=== PATIENT | female | born 1955 | race Caucasian/White ===

== ENCOUNTER → 2016-08-24 | Outpatient (CLI) | payer OTHER | LOC: FIMAGING 09:45 | DX: Z12.31 Encounter for screening mammogram for malignant neoplasm of breast (principal); Z80.3 Family history of malignant neoplasm of breast | CPT/HCPCS: G0202 ==

== ENCOUNTER 2017-05-09 09:00 | Day surgery (SDC) | payer OTHER ==
--- NOTE | 2017-05-08 16:31 | GHP ---
[f rep st] PREOP HISTORY AND PHYSICAL DATE OF ADMISSION: 05/09/2017 HISTORY: Regina is a 61-year-old female, who injured her left shoulder about 3 months ago when she was mowing and she ran into a sawed-off tree limb. This directly struck her shoulder, it was very painf ul, since that time, she has developed significant shoulder problems. She has pain with overhead mot ion, night pain, difficulty sleeping on her side. She has tried anti-inflammatory medications. Abdu ction as well as forward flexion generates most of her discomfort. This prompted an MRI, the MRI allison ws a superior labral tear. This does not appear to involve the biceps anchor. The biceps tendon its elf looks to be in reasonable shape. There is some rotator cuff tendinosis. No significant tear. G lenohumeral articular cartilage looks intact. There is subacromial bursitis. I tried a subacromial injection and this was minimally helpful, her pain and stiffness persists. The surgical plan with th e left shoulder is a gentle manipulation under anesthesia, arthroscopy debridement including the supe rior labrum is needed, possibly a biceps tenodesis, and arthroscopic decompression. PAST MEDICAL HISTORY: Remarkable for cholesterol elevation and hypothyroid. MEDICATIONS: Include simvastatin 20 mg p.o. daily, levothyroxine 50 mcg p.o. daily, hydrochlorothiaz preeti 12.5 mg daily for edema. ALLERGIES: No known drug allergies. SOCIAL HISTORY: She has never been a smoker. She is a registered nurse. Employed at [employer]. REVIEW OF SYSTEMS: Positive for hypothyroid. PHYSICAL EXAM: GENERAL: The patient is a well-developed, well-nourished female in no apparent distr ess. HEAD AND NECK: Normocephalic, atraumatic. CHEST: Clear. CARDIOVASCULAR: Regular rate and r hythm. ABDOMEN: Soft. NEUROLOGIC: She is alert and oriented x3. EXTREMITIES: Examination of the left shoulder shows that she has pain beyond 70 degrees of forward flexion. She has marked impingem ent findings with straight abduction. She has pain with circumduction. She has reasonable strength on initiation of adduction as well as external rotation. The position for supraspinatus testing is u ncomfortable with some weakness, nontender at the AC joint. Her tenderness really focuses in the sub deltoid bursa and deeper in the joint. IMPRESSION: Persistent left shoulder pain with limited motion, superior labral tear, impingement bur sitis and rotator cuff tendinosis. PLAN: Left shoulder manipulation, arthroscopy, labral biceps rotator cuff work as needed, as well as a decompression. Benefits and risks of surgery have been reviewed. She has signed a consent form a nd wishes to proceed. /[id number]/MODL
[2017-05-09] MEDS ORDERED: ceFAZolin 2 GM/SWFI 2 GM/20 ML SYR IVP ONE (09:23)
[2017-05-09] MEDS ORDERED: LR 1,000 ML IV SCH (09:23)
[2017-05-09 09:35] VITALS: PULSE 64
[2017-05-09] MEDS ORDERED: BUPIVACAINE 0.25% 30 ML SDV ONE (09:35)
[2017-05-09] MEDS ORDERED: MIDAZOLAM 2 MG/2 ML VIAL IVP ONE (09:59)
--- NOTE | 2017-05-09 10:02 | PDANEPAE ---
ANE Past Medical History - Cardiovascular History Hx Hypertension: No Hx Arrhythmias: No Hx Chest Pain: No Hx Coronary Artery / Peripheral Vascular Disease: No Hx CHF / Valvular Disease: No Hx Palpitations: No Cardiovascular History Comment: occas pvc"s - Pulmonary History Hx COPD: No Hx Asthma/Reactive Airway Disease: No Hx Recent Upper Respiratory Infection: No Hx Oxygen in Use at Home: No Hx Sleep Apnea: No Sleep Apnea Screening Result - Last Documented: Negative - Neurologic History Hx Cerebrovascular Accident: No Hx Seizures: No Hx Dementia: No - Endocrine History Hx Diabetes: Yes Endocrine History Comment: hypothyroid - Renal History Hx Renal Disorders: No - Liver History Hx Hepatic Disorders: No - Neurological & Psychiatric Hx Hx Neurological and Psychiatric Disorders: No - Cancer History Hx Cancer: No - Congenital Disorder History Hx Congenital Disorders: No - GI History Hx Gastrointestinal Disorders: No - Other Health History Other Health History: neg - Chronic Pain History Chronic Pain: Yes (l shoulder) - Surgical History Prior Surgeries: hysterectomy. mastoplexy ANE Review of Systems Review of Systems: - Exercise capacity METS (RN): 5 METS ANE Patient History - Allergies Allergies/Adverse Reactions: No Known Allergies Allergy (Unverified 04/18/17 15:21) - Home Medications Home Medications: Advil 04/18/17 [Last Taken 05/04/17] Estradiol 04/18/17 [Last Taken Unknown] HCTZ (*) 04/18/17 [Last Taken 05/08/17] Herbals/Supplements -Info Only 04/18/17 [Last Taken 05/04/17] Simvastatin 04/18/17 [Last Taken 05/08/17] Synthroid 04/18/17 [Last Taken 05/08/17] - NPO status NPO Since - Liquids (Date): 05/08/17 NPO Since - Liquids (Time): 22:00 NPO Since - Solids (Date): 05/08/17 NPO Since - Solids (Time): 19:00 - Anes Hx Anes Hx: no prior problems - Smoking Hx Smoking Status: Never smoked - Family Anes Hx Family Hx Anesthesia Complications: neg ANE Labs/Vital Signs - Vital Signs Blood Pressure: 125/69 Heart Rate: 64 Respiratory Rate: 14 O2 Sat (%): 96 Height: 172.72 cm Weight: 70.307 kg ANE Physical Exam - Airway Neck exam: FROM Mallampati Score: Class 2 Mouth exam: normal dental/mouth exam - Pulmonary Pulmonary: no respiratory distress, no rales or rhonchi, clear to auscultation - Cardiovascular Cardiovascular: regular rate and rhythym, no murmur, rub, or gallop - ASA Status ASA Status: II ANE Anesthesia Plan Anesthesia Plan: GA w LMA Regional Anesthesia: single shot NB, interscalene BP NB (Will evaluate pain in PACU since extent of surgery is unknown now. Informed consent obtained.)
[2017-05-09] MEDS ORDERED: DEXMEDETOMIDINE HCL 200 MCG/2 ML VIAL IV ONE (10:09)
[2017-05-09] MEDS ORDERED: DEPO METHYLPREDNISOLONE 40 MG/ML SDV ONE (10:12)
[2017-05-09] MEDS ORDERED: LIDOCAINE 1% 300 MG/30 ML SDV ONE (10:12)
[2017-05-09] MEDS ORDERED: fentaNYL 100 MCG/2 ML INJ ONE ×2 (10:13→12:16)
[2017-05-09] MEDS ORDERED: PROPOFOL 200 MG/20 ML VIAL ONE (10:14)
[2017-05-09] MEDS ORDERED: KETAMINE 100 MG/10 ML SYR ONE (10:14)
[2017-05-09] MEDS ORDERED: ONDANSETRON 4 MG/2 ML VIAL ONE (10:14)
[2017-05-09] MEDS ORDERED: LIDOCAINE 2% 5 ML SDV ONE (10:14)
[2017-05-09] MEDS ORDERED: DEXAMETHASONE 4 MG/ML VIAL ONE ×2 (10:15)
[2017-05-09] MEDS ORDERED: LIDOCAINE 2% JELLY 5 ML TUBE ONE (10:15)
[2017-05-09] MEDS ORDERED: GLYCOPYRROLATE 0.2 MG/1 ML VIAL ONE (10:16)
[2017-05-09] MEDS ORDERED: KETOROLAC 30 MG/1 ML SDV ONE (11:23)
[2017-05-09] MEDS ORDERED: PROMETHAZINE HCL 25 MG/ML INJ IVP PRN (11:30)
[2017-05-09] MEDS ORDERED: MEPERIDINE 25 MG/ML SYR IVP PRN (11:30)
[2017-05-09] MEDS ORDERED: fentaNYL 100 MCG/2 ML INJ IVP PRN (11:30)
[2017-05-09] MEDS ORDERED: LR 500 ML IV PRN (11:30)
[2017-05-09] MEDS ORDERED: OXYCODONE/APAP 5/325 TAB PO PRN (11:30)
[2017-05-09] MEDS ORDERED: ONDANSETRON 4 MG/2 ML VIAL IVP PRN (11:30)
[2017-05-09] MEDS ORDERED: NALOXONE HCL 0.4 MG/ML INJ IVP PRN (11:30)
[2017-05-09] MEDS ORDERED: ACETAMINOPHEN 500 MG TAB PO PRN (11:30)
--- NOTE | 2017-05-09 12:06 | POSTANESTH ---
Post Anesthetic Evaluation Cardiovascular Status: Normal, Stable Respiratory Status: Normal, Stable, Similar to Pre-op Cond. Level of Consciousness/Mental Status: Can Participate in Eval, Moderately Sleepy Pain Control: Adequate, Prn Tx Ordered Nausea/Vomiting Control: Adequate, Prn Tx Ordered Complications Possibly Related to Anesthesia: None Noted
[2017-05-09] MEDS ORDERED: OXYCODONE/APAP 5/325 TAB ONE (12:17)
--- NOTE | 2017-05-09 12:30 | GOP ---
[f rep st] OPERATIVE REPORT DATE OF OPERATION: SURGEON: Alexis Arora MD LOAN BROKER: Pradeep Wilson, CSFA, LSA. ANESTHESIA: Alexis Couch MD. PREOPERATIVE DIAGNOSIS: Left shoulder impingement, subacromial bursitis, rotator cuff tendinosis, chaidez perior labral tear. POSTOPERATIVE DIAGNOSIS: Left shoulder impingement, subacromial bursitis, rotator cuff tendinosis, s uperior labral tear. PROCEDURE PERFORMED: Left shoulder gentle manipulation, left shoulder arthroscopy, labral debridemen t, subacromial bursectomy, and arthroscopic subacromial decompression. FINDINGS: On gentle manipulation, there is minimal stiffness of the shoulder. There is a little sof t tissue release in the last 5 degrees of full forward flexion. She is fine with internal and wireless telegrapher al rotation, abduction and external rotation. The capsule is overall flexible. On arthroscopy, the articular surface of the humerus and the glenoid intact. The superior labrum has a tear. It emerges from the undersurface of the labrum and generates a frayed tear that drapes into the joint. The constantine g head biceps tendon is intact. It is round, smooth, and a good quality tendon, and its attachment a t the superior labrum appears intact. The undersurface of the cuff shows no tears. The superior jeannie face of the cuff shows a lot of granulation-like inflammation on its surface, and there is a lot of b ursal inflammation. There is bony impingement anatomy and thick inflamed bursa. SPECIMENS: None. ESTIMATED BLOOD LOSS: Minimal. INDICATIONS: The patient is a 61-year-old female who injured her left shoulder about 3 months ago. She has pain with overhead motion, by exam impingement. An MRI shows a superior labral tear that silveira s not appear to detach the biceps. Biceps tendon is in good shape. There is cuff tendinosis, bursit is, and bony impingement anatomy. Articular surfaces appear intact. The AC joint has some inflammat ion but nontender there by exam. DESCRIPTION OF PROCEDURE: The patient was taken to the operating room, placed supine on the operatin g table, placed under general anesthetic with laryngeal mask ventilation. I gently manipulated the s houlder with minimal stiffness noted as described in the findings. She was then rolled right side do wn on a padded mazariegos bag with an axillary roll. All bony prominences were well padded, and the left u pper extremity was placed in 10 pounds of longitudinal traction, 45 degrees of abduction, 20 degrees of forward flexion. We used a thorough standard chlorhexidine prep. Arthroscopy drapes were applied . I used a standard anterior and posterior portal with the above-noted findings. I reached through the anterior portal and I debrided the superior labrum back to a stable base. This did leave a littl e recess under the superior labrum, but the biceps anchor appeared sound. I placed 5 cc of lidocaine plain in the joint with 1 cc of Depo-Medrol 40 mg/cc. I then placed the scope in the subacromial sp zainab, established a lateral portal. I used a shaver and a tissue ablator to define the undersurface o f the acromion and I used acromionizer bur to flatten the undersurface of the acromion as well as the distal clavicle. The bone resection released the coracoacromial ligament, and I did a bursectomy. This included debridement of the superior surface of the cuff that had a lot of inflamed tissue on it s surface. I placed 10 cc of 0.5% plain Marcaine with 1 cc of Depo-Medrol 40 mg/cc in the subacromia l space. The portals were closed with 4-0 Prolene. The wounds were dressed with Betadine-soaked Ada ptic, 4x4s, ABD pads, and Hypafix tape, and she will go into a sling. COMPLICATIONS: None. DRAINS: None. COUNTS: All counts correct. The patient was taken in stable condition to recovery. My surgical garment inspector was necessary for arm positioning and management of the arthroscopic procedures , especially in case of the need for open procedures. /[id number]/MODL
[2017-05-09 14:53] VITALS: RESP 16; TEMP 96.8
[2017-05-09 15:43] VITALS: BP 95/57; O2SAT 95
== END 2017-05-09 14:45 | disposition home or self-care (01) ==
LOC: FSGY 09:00
PROVIDERS: ATTEND Orthopaedic Surgery
PROC: 0RBK4ZZ Excision of Left Shoulder Joint, Percutaneous Endoscopic Approach (ICD-10-PCS; principal; 2017-05-09 10:15)
PROC: 0MB24ZZ Excision of Left Shoulder Bursa and Ligament, Percutaneous Endoscopic Approach (ICD-10-PCS; principal; 2017-05-09 10:15)
PROC: 0RNH4ZZ Release Left Acromioclavicular Joint, Percutaneous Endoscopic Approach (ICD-10-PCS; principal; 2017-05-09 10:15)
DX: M24.812 Other specific joint derangements of left shoulder, not elsewhere classified (principal); M75.52 Bursitis of left shoulder; M75.42 Impingement syndrome of left shoulder; E03.9 Hypothyroidism, unspecified; E78.00 Pure hypercholesterolemia, unspecified
CPT/HCPCS: J0171; J0690; J1030; J1100; J1885; J2250; J2405; J2704; J3010

== ENCOUNTER → 2017-11-24 | Outpatient (CLI) | payer OTHER | LOC: FIMAGING 13:05 | PROVIDERS: ATTEND Internal Medicine | DX: Z12.31 Encounter for screening mammogram for malignant neoplasm of breast (principal) ==

== ENCOUNTER → 2018-12-06 | Outpatient (CLI) | payer OTHER | LOC: EMCIMAGING 13:13 ==